=== PATIENT | male | born 1970 | race Two or more races ===

== ENCOUNTER 2023-06-04 17:41 | Inpatient (IN) | payer OTHER ==
[~2023-06-04] VITALS: Ht 167.6 cm; Wt 102.6 kg
[2023-06-04 18:30] LABS: Basophils # (auto) 0.1 10 ^3/uL (0-0.2); Basophils % (auto) 1.2 % (0.0-2.0); Lymphocytes # (auto) 1.7 10 ^3/uL (0.4-5.4); Red Cell Distribution Width 14.9 % (11.8-14.3)
[2023-06-04 18:32] LABS: Eosinophils # (auto) 0.3 10 ^3/uL (0-0.8); Eosinophils % (auto) 2.2 % (0.0-7.0); Hematocrit 25.8 % (41.0-53.0); Hemoglobin 8.7 g/dL (13.5-17.5); Lymphocytes % (auto) 14.6 % (10.0-50.0); Mean Corpuscular Hemoglobin 27.8 pg (28.0-32.0); Mean Corpuscular Hgb Conc. 33.7 g/dL (32.0-36.0); Mean Corpuscular Volume 82.4 fL (80.0-100.0); Monocytes # (auto) 0.6 10 ^3/uL (0-1.3); Monocytes % (auto) 5.4 % (0.0-12.0); Neutrophils # (auto) 9.1 10 ^3/uL (1.6-8.6); Neutrophils % (auto) 76.6 % (37.0-80.0); Red Blood Cells 3.13 10^6/uL (4.5-5.90); White Blood Cell 11.8 10^3/uL (4.4-10.8)
[2023-06-04 18:38] LABS: Alanine Aminotransferase 11 U/L (7-40); Albumin 3.5 g/dL (3.2-4.8); Alkaline Phosphatase 109 U/L (46-116); Anion Gap 8 (5-15); Aspartate Aminotransferase 15 U/L (13-40); BUN/Creatinine Ratio 10.3 (10.0-20.0); Blood Urea Nitrogen 19 mg/dL (9-23); Calcium 8.3 mg/dL (8.5-10.1); Carbon Dioxide 25 mmol/L (20-30); Chloride 112 mmol/L (98-107); Glucose 166 mg/dL (74-106); Potassium 3.6 mmol/L (3.5-5.1); Sodium 145 mmol/L (136-145)
[2023-06-04 18:39] LABS: Bilirubin, Total 1.1 mg/dL (0.2-1.0); Total Protein 5.9 g/dL (5.7-8.2)
[2023-06-04 18:50] LABS: Urine Bacteria NONE SEEN /hpf (None Seen); Urine Blood 2+ /uL (Negative); Urine Clarity Clear (Clear); Urine Color Yellow (Yellow); Urine Mucus FEW (None Seen); Urine Protein, UAD 3+ (Negative); Urine Urobilinogen Normal (Negative); Urine WBC 3 /hpf (0 - 3)
[2023-06-04 19:16] LABS: Platelet Estimate Decreased
[2023-06-04] MEDS ORDERED: FUROSEMIDE 100 MG/10ML VIAL IV ONE (19:30)
[2023-06-04] MEDS ORDERED: NITROGLYCERIN 2% OINT 1GM PKG TD ONE (19:30)
[2023-06-04] MEDS ORDERED: ASPirin 325 MG TAB PO ONE (19:30)
[2023-06-04] MEDS ORDERED: MORPHINE SULFATE INJ 2 MG/ml SYRG IV PRN (20:45)
[2023-06-04] MEDS ORDERED: ACETAMINOPHEN 325 MG TAB PO PRN (20:45)
[2023-06-04] MEDS ORDERED: NITROGLYCERIN 0.4 MG SL TAB SL PRN (20:45)
[2023-06-04] MEDS ORDERED: ONDANSETRON HCL 4 MG/2 ML VIAL IV PRN (20:45)
[2023-06-04] MEDS ORDERED: TEMAZEPAM 15 MG CAP PO PRN (20:45)
[2023-06-04] MEDS ORDERED: DEXTROSE (50%) 50ML SYRG IV PRN (20:45)
[2023-06-04] MEDS ORDERED: ALBUTEROL MEDNEB 2.5 mg/3ml NEB NEB PRN (21:00)
[2023-06-04 21:59] VITALS: BP 197/90; PULSE 85; RESP 16; O2SAT 96
[2023-06-05] VITALS (10 sets, daily range): BP systolic 139–172; BP diastolic 57–90; PULSE 77–88; RESP 12–19; TEMP 97.7–98; O2SAT 95–100
[2023-06-05] MEDS: ATORVASTATIN 20 MG TAB PO SCH ×2 (00:14→22:18)
[2023-06-05] MEDS: CARVEDILOL 3.125 MG TAB PO SCH ×3 (00:17→22:20)
[2023-06-05] MEDS: ACCU-CHEK COMFORT CURVE STRIP VI SCH ×5 (00:27→22:21)
[2023-06-05] MEDS: InsuLIN REG 1unit/0.01ml Soln (100units/ml) SC SCH ×5 (00:41→22:23)
[2023-06-05 04:51] LABS: Basophils # (auto) 0.1 10 ^3/uL (0-0.2); Eosinophils # (auto) 0.2 10 ^3/uL (0-0.8); Hemoglobin 7.7 g/dL (13.5-17.5); Lymphocytes # (auto) 1.8 10 ^3/uL (0.4-5.4); Monocytes # (auto) 0.8 10 ^3/uL (0-1.3); Monocytes % (auto) 6.8 % (0.0-12.0)
[2023-06-05 04:53] LABS: Basophils % (auto) 0.7 % (0.0-2.0); Eosinophils % (auto) 2.1 % (0.0-7.0); Hematocrit 22.5 % (41.0-53.0); Lymphocytes % (auto) 15.1 % (10.0-50.0); Mean Corpuscular Hemoglobin 28.2 pg (28.0-32.0); Mean Corpuscular Hgb Conc. 34.2 g/dL (32.0-36.0); Mean Corpuscular Volume 82.4 fL (80.0-100.0); Neutrophils % (auto) 75.3 % (37.0-80.0); Red Blood Cells 2.73 10^6/uL (4.5-5.90); Red Cell Distribution Width 14.8 % (11.8-14.3)
[2023-06-05 05:12] LABS: Albumin 3.4 g/dL (3.2-4.8); Alkaline Phosphatase 89 U/L (46-116); Anion Gap 9 (5-15); Aspartate Aminotransferase 14 U/L (13-40); BUN/Creatinine Ratio 9.8 (10.0-20.0); Blood Urea Nitrogen 20 mg/dL (9-23); Calcium 8.5 mg/dL (8.5-10.1); Carbon Dioxide 25 mmol/L (20-30); Chloride 111 mmol/L (98-107); Glucose 95 mg/dL (74-106); Potassium 3.4 mmol/L (3.5-5.1); Sodium 145 mmol/L (136-145)
[2023-06-05 05:13] LABS: Bilirubin, Total 0.8 mg/dL (0.2-1.0); Total Protein 5.9 g/dL (5.7-8.2)
[2023-06-05 05:25] LABS: Alanine Aminotransferase < 9 U/L (7-40)
[2023-06-05] MEDS ORDERED: FUROSEMIDE 40 MG TAB PO SCH (06:00)
[2023-06-05 06:58] LABS: Platelet Estimate Decreased
[2023-06-05] MEDS: FUROSEMIDE 40 MG TAB PO SCH ×2 (08:14→10:40)
[2023-06-05] MEDS ORDERED: POTASSIUM CHL 20 Meq TABLET PO ONE (08:30)
[2023-06-05 08:40] LABS: Amphetamine Screen, Urine Neg (NEGATIVE); Barbiturate Scree,Urine Neg (NEGATIVE); Benzodiazephine Screen, Urine Neg (NEGATIVE); Cannabinoid Screen, Urine Neg (NEGATIVE); Cocaine Screen, Urine Neg (NEGATIVE); Opiate Scree,Urine Neg (NEGATIVE); Phencyclidine Screen, Urine Neg (NEGATIVE)
[2023-06-05 09:05] LABS: Magnesium 1.8 mg/dL (1.6-2.6)
[2023-06-05] MEDS ORDERED: LISINOPRIL 10 MG TAB PO SCH (10:00)
[2023-06-05] MEDS ORDERED: ENOXAPARIN SOD 30 MG/0.3 ML SYRINGE SC SCH (10:00)
[2023-06-05] MEDS ORDERED: ASPirin 81 mg TAB PO SCH (10:00)
[2023-06-05 12:22] LABS: % Iron Saturation 12.4 % (20-55)
[2023-06-05 15:25] LABS: Creatinine, Urine 56.95 mg/dL (30.0-125.0)
[2023-06-05 15:27] LABS: Protein, Urine 372.9 mg/dL (0.0-11.9); Urine Protein/Creatinine Ratio 6.55
[2023-06-05 16:36] LABS: INR 1.04 (0.9-1.15); Partial Thromboplastin Time 28.5 SEC (24.5-34.5); Prothrombin Time 10.9 sec (9.3-11.8)
[2023-06-06 05:23] VITALS: BP 160/87; PULSE 85; RESP 18; TEMP 98; O2SAT 100
[2023-06-06] MEDS: InsuLIN REG 1unit/0.01ml Soln (100units/ml) SC SCH ×2 (06:15→11:24)
[2023-06-06] MEDS: ACCU-CHEK COMFORT CURVE STRIP VI SCH ×2 (06:15→11:18)
[2023-06-06] MEDS: hydrALAZINE HCL 20 MG/ML VL IV PRN ×2 (06:17)
[2023-06-06 07:20] VITALS: O2SAT 100
[2023-06-06 08:00] VITALS: BP 164/90; PULSE 83; PULSE 86; RESP 18; RESP 21
[2023-06-06 08:06] LABS: Thyroxine (T4) 6.7 ug/dL (4.5-12.0)
[2023-06-06 08:25] VITALS: BP 159/75; PULSE 90; RESP 21; TEMP 98.1; O2SAT 97
[2023-06-06 08:51] LABS: Hepatitis B Surface Antibody Negative (Negative)
[2023-06-06 09:02] LABS: Hepatitis B Surface Antigen Negative (Negative)
[2023-06-06 09:06] LABS: Albumin 1.9 g/dL (2.9-4.4); Alpha-1-Globulin 0.2 g/dL (0.0-0.4); Alpha-2-Globulin 0.6 g/dL (0.4-1.0); Gamma Globulin 1.3 g/dL (0.4-1.8); Globulin Total 3.2 g/dL (2.2-3.9); Protein Total Serum 5.1 g/dL (6.0-8.5)
[2023-06-06] MEDS: FUROSEMIDE 40 MG TAB PO SCH (09:26)
[2023-06-06] MEDS ORDERED: amLODIPine BESYLATE 5 MG TAB PO SCH (10:00)
[2023-06-06] MEDS ORDERED: METOPROLOL TARTRATE 50 MG TAB PO SCH (10:00)
[2023-06-06 12:00] LABS: Basophils # (auto) 0.1 10 ^3/uL (0-0.2); Basophils % (auto) 0.8 % (0.0-2.0); Eosinophils # (auto) 0.3 10 ^3/uL (0-0.8); Eosinophils % (auto) 3.1 % (0.0-7.0); Hematocrit 22.8 % (41.0-53.0); Hemoglobin 7.8 g/dL (13.5-17.5); Lymphocytes # (auto) 1.6 10 ^3/uL (0.4-5.4); Lymphocytes % (auto) 16.6 % (10.0-50.0); Mean Corpuscular Hemoglobin 28.6 pg (28.0-32.0); Mean Corpuscular Hgb Conc. 34.1 g/dL (32.0-36.0); Mean Corpuscular Volume 83.7 fL (80.0-100.0); Monocytes # (auto) 0.7 10 ^3/uL (0-1.3); Monocytes % (auto) 7.5 % (0.0-12.0); Neutrophils # (auto) 7.1 10 ^3/uL (1.6-8.6); Red Blood Cells 2.72 10^6/uL (4.5-5.90); Red Cell Distribution Width 14.7 % (11.8-14.3); White Blood Cell 9.8 10^3/uL (4.4-10.8)
[2023-06-06 12:25] VITALS: BP 146/85; PULSE 75; RESP 21; TEMP 97.8; O2SAT 97
[2023-06-06] MEDS ORDERED: AML5T PO (12:32)
[2023-06-06] MEDS ORDERED: ATOR10TA PO (12:32)
[2023-06-06 12:38] LABS: Anion Gap 9 (5-15); Carbon Dioxide 25 mmol/L (20-30); Chloride 109 mmol/L (98-107); Sodium 143 mmol/L (136-145)
[2023-06-06 12:39] LABS: Calcium 8.6 mg/dL (8.5-10.1)
[2023-06-06 12:44] LABS: BUN/Creatinine Ratio 10.8 (10.0-20.0); Blood Urea Nitrogen 22 mg/dL (9-23); Glucose 112 mg/dL (74-106)
[2023-06-06] MEDS ORDERED: ERGOCALCIFEROL 50,000 UNIT(1.25MG) CAP PO SCH (13:30)
[2023-06-06 14:41] VITALS: BP 159/75; PULSE 90; TEMP 36.6
[2023-06-06] MEDS ORDERED: CALCIUM ACETATE 667 MG CAP PO SCH (18:00)
[2023-06-07 17:06] LABS: Anti-Nuclear Antibody Direct Negative (Negative)
== END 2023-06-06 15:50 | disposition home or self-care (01) | DRG 133 ==
LOC: ER 17:41 → TELE 20:43 → TELE-EAST 06-05 09:24
PROVIDERS: ADMIT Nurse Practitioner; ATTEND Internal Medicine
DX: J96.20 Acute and chronic respiratory failure, unspecified whether with hypoxia or hypercapnia (principal); I21.A1 Myocardial infarction type 2; I50.31 Acute diastolic (congestive) heart failure; N17.9 Acute kidney failure, unspecified; D69.6 Thrombocytopenia, unspecified; E83.39 Other disorders of phosphorus metabolism; I13.0 Hypertensive heart and chronic kidney disease with heart failure and stage 1 through stage 4 chronic kidney disease, or unspecified chronic kidney disease; I50.9 Heart failure, unspecified; D50.9 Iron deficiency anemia, unspecified; E11.22 Type 2 diabetes mellitus with diabetic chronic kidney disease; E66.9 Obesity, unspecified; E78.5 Hyperlipidemia, unspecified; I16.0 Hypertensive urgency; H54.7 Unspecified visual loss; J45.909 Unspecified asthma, uncomplicated; R31.9 Hematuria, unspecified; N18.32 Chronic kidney disease, stage 3b; R80.9 Proteinuria, unspecified; Z79.4 Long term (current) use of insulin; Z68.36 Body mass index [BMI] 36.0-36.9, adult
CPT/HCPCS: 36415; 71046; 74176; 76775; 80048; 80053; 80061; 80307; 81001; 82306; 82570; 82607; 82728; 82962; 83036; 83540; 83550; 83605; 83615; 83735; 83880; 83970; 84100; 84155; 84156; 84165; 84300; 84436; 84443; 84484; 85025; 85045; 85379; 85610; 85730; 86038; 86703; 86706; 86803; 86880; 86885; 87040; 87340; 93005; 93306; 99291; G0378; J1815